=== PATIENT | male | born 1950 | race Caucasian/White ===

== ENCOUNTER 2016-12-08 12:43 | Emergency (ER) | payer OTHER ==
[~2016-12-08 12:43] MED LIST: ALEVE220 MG PO; ALTA5 PO; ASAB PO; BYSTOLIC5 MG PO; DIOV160 PO; FLOMAX4 PO; NEXIUM20 M1 PO; OMEGA XL PO; VITAMIN B-122500 MCG SL; VITAMIN D31000 UNIT PO
== END 2016-12-08 13:00 | disposition home or self-care (01) ==
LOC: ER 12:43
DX: T81.31XA Disruption of external operation (surgical) wound, not elsewhere classified, initial encounter (principal); I10 Essential (primary) hypertension; E78.5 Hyperlipidemia, unspecified; Z85.46 Personal history of malignant neoplasm of prostate; Z79.82 Long term (current) use of aspirin; Z79.899 Other long term (current) drug therapy
CPT/HCPCS: 87070; 87077; 87186; 87205; 99284